=== PATIENT | male | born 1980 | race Caucasian/White ===

== ENCOUNTER 2023-08-19 07:03 | Outpatient (CLI) | payer BC, SELFPAY ==
--- NOTE | 2023-08-19 07:15 | MR_ITS ---
[facility] [address] [facility] [address] Phone:?[phone] Fax:?[phone] Referring Physician Information: Prateek Tate M.D. [address] [facility] [address] Phone:?[phone] Fax:?[phone] Patient:?Mundo Casanova D.O.B:?1980 Sex:?Male Phone:?[phone] [facility] MRN:?[id number] Exam Date:?08/19/2023 EXAM: MRI of the RIGHT WRIST, without contrast CLINICAL: Male, 42 years old, with acute right wrist pain, not improving. PRIOR SURGERY: None reported. PLAIN FILMS: 03/08/2019 radiographic series of the right wrist. No recent radiographs available for comparison. COMPARISONS: No prior MRIs available. TECHNICAL: Using a 1.5T MR scanner and a localizing surface coil: 2.0 mm?coronals: T1, PDFS, gradient echo 3.0 mm?sagittals: PDFS 3.0 mm?axials: PD, PDFS SEDATION: None. CONTRAST: None. IMPRESSION: 1. Comminuted intra-articular fracture of the base of fifth metacarpal which may be correlated with plain films which are not available this time for comparison. 2. Adjacent marrow edema and contusion, difficult to exclude minimal fracture of the adjacent hamate. 3. Suspected deformity/tear of the ulnar aspect of the triangular fibrocartilage. 4. No other demonstrable fractures. 5. No convincing proximal carpal row ligament tears. FINDINGS: Osseous structures: Carpal bones: Marrow edema of the distal ulnar aspect of the hamate. Remainder of the carpal bones appear intact without marrow edema. Distal radius: No fracture or marrow edema. Distal ulna: No fracture or marrow edema. 2 mm ulna minus variance. Proximal metacarpals: Abnormal signal alteration and apparent deformity of the base of the fifth metacarpal is presumed to represent residua of intra-articular fracture of the fifth metacarpal base (coronal images 11-14; sagittal images 15- 17). Correlate with plain films which are not available for comparison at this time. Remainder of metacarpals appear intact. Joints: Radiocarpal: No pathologic effusion or convincing arthrosis. Distal radioulnar: No pathologic effusion or convincing arthrosis. Midcarpal: No pathologic effusion or convincing arthrosis. Carpometacarpal: Deformity of the fifth carpometacarpal joint again suspected to be associated with intra-articular fracture of the fifth metacarpal base. Ganglion cyst: No dorsal or other soft tissue ganglion cyst. Alignment: Lunate type: Type I Scapholunate and capitolunate angles: Normal. Ulna variance: 2 mm ulna minus variance. TFCC: Abnormal signal alteration and deformity of the ulnar aspect of the TFCC presumed to represent ulnar-sided tear (coronal images 10-13). Ligaments: Scapholunate: No sprain/tear or disassociation. Lunotriquetral: No sprain/tear. Tendons: Flexors: Intact without tendinopathy or tenosynovitis. Extensors: ECU & 6th extensor compartment: Intact without leland tendinopathy, tear, or longitudinal splitting. Extensor retinaculum and fibrous subsheath appear intact without demonstrable subsheath injury or nonphysiologic ECU displacement. 1st - 5th extensor compartments: Intact and unremarkable. Neurovascular: Median nerve: Unremarkable carpal tunnel without convincing neuritis or intrinsic/extrinsic masses. Ulnar nerve: Unremarkable ulnar nerve and Guyon's canal without intrinsic/extrinsic masses. [facility] Electronically signed on 08/19/2023 4:39:00 PM by Akbar Ratliff M.D.
== END 2023-08-19 07:04 | disposition home or self-care (01) ==
LOC: MRI 07:06
PROVIDERS: PCP Family Medicine; Visit Provider Family Medicine
DX: M25.531 Pain in right wrist (principal); S62.316A Displaced fracture of base of fifth metacarpal bone, right hand, initial encounter for closed fracture
CPT/HCPCS: 73221

== ENCOUNTER 2023-10-14 07:49 | Outpatient (CLI) | payer OTHER, SELFPAY ==
--- NOTE | 2023-10-14 08:00 | CT_ITS ---
Patient: EDENILSON BASURTO Facility:?[facility] Patient ID:?[id number] Site Patient ID:?[id number]. Site :?1980 Study:?CT-Sinus W/O-10/14/2023 8:20:52 AM Ordering Physician:DALJIT SUNSHINE Final Report: Indication: Right nasal polyp Technique: Performed without IV contrast Comparison: None available Findings: Frontal sinuses: Clear. Ethmoid sinuses: Clear. Maxillary sinuses: Mucosal thickening with small mucous retention cysts noted on the right. Mucosal thickening and large mucosal retention cysts are present on the left with at least partial obstruction of the left maxillary sinus drainage pathway. The right maxillary sinus drainage pathway is clear. Sphenoid sinuses: Minimal mucosal thickening within the left sphenoid sinus with partial obstruction of the drainage pathway. The right sphenoid sinus and sphenoethmoidal recess are clear. Nasal Cavity: Leftward deviation of the nasal septum is present with an associated nasal septal spur. Lobular contour of the posterior nasal turbinate mucosa noted. CSF density within the posterior fossa noted. 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 Impression: 1. Bilateral maxillary sinus disease with at least partial obstruction of the left maxillary sinus drainage pathway. 2. Trace mucosal thickening within the left sphenoid sinus. 3. Leftward deviation of the nasal septum with left-sided nasal septal spur. Please note that all CT scans at this facility use dose modulation, iterative reconstruction, and/or weight-based dosing when appropriate to reduce radiation dose to as low as reasonably achievable. Dictated by Segundo Cantu MD @ 10/14/2023 11:40:10 AM Signed by:?Segundo Cantu MD @10/14/2023 11:40:10 AM (Electronic Signature)
== END 2023-10-14 07:50 | disposition home or self-care (01) ==
PROVIDERS: PCP Family Medicine; Visit Provider Family Medicine
DX: J33.9 Nasal polyp, unspecified (principal); J32.0 Chronic maxillary sinusitis; J34.2 Deviated nasal septum
CPT/HCPCS: 70486